=== PATIENT | male | born 1950 | race Caucasian/White ===

== ENCOUNTER 2018-03-03 11:03 | Emergency (ER) | payer OTHER ==
[~2018-03-03] VITALS: Ht 180.3 cm; Wt 94.3 kg
[2018-03-03 12:13] VITALS: BP 176/100
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
[2018-03-03] MEDS ORDERED: NAPROXEN500 M2 PO (12:44)
[2018-03-03] MEDS ORDERED: METFORMIN HCL500 M3 PO (12:44)
[2018-03-03] MEDS ORDERED: LISINOPRIL20 M1 PO (12:45)
[2018-03-03] MEDS ORDERED: SIMVASTATIN40 M1 PO (12:45)
== END 2018-03-03 12:55 ==
LOC: ERH 11:03
DX: S82.144A Nondisplaced bicondylar fracture of right tibia, initial encounter for closed fracture (principal); V29.40XA Motorcycle driver injured in collision with unspecified motor vehicles in traffic accident, initial encounter; Y92.411 Interstate highway as the place of occurrence of the external cause
CPT/HCPCS: 73562-RT